=== PATIENT | female | born 1985 | race African-American/Black ===

== ENCOUNTER 2016-11-18 04:36 | Emergency (ER) | payer OTHER ==
[~2016-11-18] VITALS: Ht 177.8 cm; Wt 108.9 kg
[~2016-11-18 04:36] MED LIST: IRON18TA PO; MULT-18 PO; PENI500T PO; TRAM-29 PO
[2016-11-18 05:05] VITALS: BP 133/60
[2016-11-18] MEDS ORDERED: NAPROXEN 500 MG TABLET PO ONE (06:15)
[2016-11-18 06:32] LABS: BILIRUBIN,URINE NEGATIVE (NEG); GLUCOSE,URINE NEGATIVE (NEG); NITRITE,URINE NEGATIVE (NEG); PROTEIN,URINE NEGATIVE (NEG-TRACE); UROBILINOGEN,URINE 0.2 mg/dL (0.2 mg/dL)
--- NOTE | 2016-11-18 06:53 | PHYS DOC ---
Past Medical History Past Medical History: No Pertinent History, Asthma Past Surgical History: No Surgical History Alcohol Use: None Drug Use: None Adult General Chief Complaint Chief Complaint: PELVIC PAIN HPI HPI Patient is a 31 year old female who presents with pelvic pain. Patient reports a pressure-like pain in her lower abdomen for the past 2 days. This is accompanied by whitish vaginal discharge. No urinary symptoms, no vaginal bleeding. Patient reports symptoms similar to when she's had bacterial vaginosis in the past. She has not taken anything for symptoms prior to coming to ED. LMP 10/31. No other acute complaints. Review of Systems Review of Systems Constitutional: Denies fever or chills Eyes: Denies change in visual acuity or eye pain HENT: Denies nasal congestion or sore throat Respiratory: Denies cough or shortness of breath Cardiovascular: Denies chest pain GI: Lower abdominal pain. Denies nausea, vomiting, bloody stools or diarrhea : White vaginal discharge. Denies dysuria or hematuria Musculoskeletal: Denies back pain or joint pain Integument: Denies rash or skin lesions Neurologic: Denies headache, focal weakness or sensory changes Current Medications Current Medications Current Medications Medications (Trade) Dose Ordered Sig/Marie Start Time Stop Time Status Last Admin Dose Admin Naproxen (Naprosyn) 500 mg 1X ONCE 11/18/16 06:15 11/18/16 06:16 DC 11/18/16 06:32 500 MG Allergies Allergies Allergies Coded Allergies Type Severity Reaction Last Updated Verified No Known Drug Allergies 12/30/13 No Physical Exam Physical Exam Constitutional: Well developed, well nourished, no acute distress, non-toxic appearance HENT: Normocephalic, atraumatic, bilateral external ears normal Eyes: EOMI, conjunctiva normal, no discharge Neck: Normal range of motion, no stridor Cardiovascular: Heart rate normal, regular rhythm, no murmur Lungs & Thorax: Bilateral breath sounds clear to auscultation Abdomen: Bowel sounds normal, soft, non-distended, suprapubic TTP without guarding or rebound Pelvic: *Patient eloped before pelvic exam performed Skin: Warm, dry, no erythema, no rash Extremities: No obvious deformity, no edema Neurologic: Alert and oriented X 3, no gross deficits noted Current Patient Data Vital Signs Vital Signs Date Time Temp Pulse Resp B/P Pulse Ox O2 Delivery O2 Flow Rate FiO2 11/18/16 05:05 98.6 71 16 133/60 100 98.6 11/18/16 05:04 Room Air Lab Values Laboratory Tests Test 11/18/16 05:11 11/18/16 05:15 Urine Collection Type Unknown Urine Color Yellow Urine Clarity Clear Urine pH 6.0 Urine Specific [place] 1.020 Urine Protein Negativemg/dL (NEG-TRACE) Urine Glucose (UA) Negativemg/dL (NEG) Urine Ketones (Stick) Negativemg/dL (NEG) Urine Blood Negative (NEG) Urine Nitrite Negative (NEG) Urine Bilirubin Negative (NEG) Urine Urobilinogen Dipstick 0.2mg/dL (0.2 mg/dL) Urine Leukocyte Esterase Negative (NEG) Urine RBC 0/HPF (0-2) Urine WBC 0/HPF (0-4) Urine Squamous Epithelial Cells Few/LPF Urine Bacteria 0/HPF (0-FEW) POC Urine HCG, Qualitative hcg negative (Negative) EKG EKG [] Radiology/Procedures Radiology/Procedures [] Course & Med Decision Making Course & Med Decision Making Pertinent Labs and Imaging studies reviewed. (See chart for details) Patient is 31-year-old female who presents with pelvic pain. Possible bacterial vaginosis or UTI. Will obtain UA, urine screen, pelvic swabs. Naproxen ordered for pain. UA unremarkable, urine preg negative. Before pelvic exam could be completed, patient eloped. Dragon Disclaimer Dragon Disclaimer This electronic medical record was generated, in whole or in part, using a voice recognition dictation system. Departure Departure Impression: Primary Impression: Pelvic pain Disposition: 01 LEFT WITHOUT BEING SEEN Condition: LEFT WITHOUT BEING SEEN Referrals: NO PCP (PCP) GRUPO BRYANT MD Nov 18, 2016 06:53
[2016-11-18 06:57] LABS: RBC,URINE 0 /HPF (0-2); WBC,URINE 0 /HPF (0-4)
[2016-11-18 06:58] LABS: BACTERIA,URINE 0 /HPF (0-FEW); SQUAMOUS EPITHELIAL CELL,UR FEW /LPF
== END 2016-11-18 07:26 | disposition left against medical advice (07) ==
LOC: ER 04:36
DX: R10.2 Pelvic and perineal pain (principal); N89.8 Other specified noninflammatory disorders of vagina; R10.30 Lower abdominal pain, unspecified; J45.909 Unspecified asthma, uncomplicated
CPT/HCPCS: 81001; 81025; 99283